=== PATIENT | male | born 2000 | race Caucasian/White ===

== ENCOUNTER 2019-01-26 16:59 | Emergency (ER) | payer OTHER ==
[~2019-01-26] VITALS: Ht 180.3 cm; Wt 68.0 kg
--- NOTE | 2019-01-26 19:00 | NUR ---
ERMD AT BEDSIDE
--- NOTE | 2019-01-26 19:11 | NUR ---
Patient discharged to home in stable conditon. Written and verbal after care instructions given. Patient verbalizes understanding of instructions. Patient ambulated with stable condition.
[2019-01-26 19:13] VITALS: BP 121/83
== END 2019-01-26 19:14 | disposition home or self-care (01) ==
LOC: ER 17:03
DX: B34.9 Viral infection, unspecified (principal)
CPT/HCPCS: A4663

== ENCOUNTER 2019-02-11 21:27 | Emergency (ER) | payer OTHER ==
[~2019-02-11] VITALS: Ht 180.3 cm; Wt 81.6 kg
[2019-02-11] MEDS ORDERED: predniSONE 20 MG TABLET PO ONE (22:15)
[2019-02-11] MEDS: LORATADINE 10 MG TABLET PO SCH ×2 (22:19→22:20)
[2019-02-11] MEDS ORDERED: LORATADINE 10 MG TABLET ONE (22:20)
[2019-02-11] MEDS ORDERED: predniSONE 20 MG TABLET ONE (22:21)
--- NOTE | 2019-02-11 22:21 | NUR ---
PATIENT RECEIVED CXR AWAITING RESULTS.
[2019-02-11 22:42] VITALS: BP 110/68
== END 2019-02-11 22:43 | disposition home or self-care (01) ==
LOC: ER 21:32
DX: R05 Cough (principal); J30.1 Allergic rhinitis due to pollen
CPT/HCPCS: 71045; 99283; J7512; A4663

== ENCOUNTER 2019-02-27 20:13 | Emergency (ER) | payer OTHER ==
[~2019-02-27] VITALS: Ht 180.3 cm; Wt 81.6 kg
--- NOTE | 2019-02-27 20:24 | NUR ---
patient came from home with chied complaint of cough that has been continuous for 3 month.
[2019-02-27] MEDS ORDERED: ALBUTEROL SULFATE 2.5 MG/3 ML NEBU NEB ONE (20:45)
[2019-02-27] MEDS ORDERED: IPRATROPIUM BROMIDE 0.5 MG/2.5 ML NEBU NEB ONE (20:45)
[2019-02-27] MEDS ORDERED: predniSONE 20 MG TABLET ONE (20:52)
[2019-02-27] MEDS ORDERED: IPRATROPIUM BROMIDE 0.5 MG/2.5 ML NEBU ONE (20:54)
[2019-02-27] MEDS ORDERED: ALBUTEROL SULFATE 2.5 MG/3 ML NEBU ONE (20:54)
--- NOTE | 2019-02-27 20:56 | NUR ---
Patient taken down to radiology for rdiagnostic studies with Rod oh via wheel chair,
[2019-02-27] MEDS ORDERED: predniSONE 20 MG TABLET PO ONE (21:00)
--- NOTE | 2019-02-27 22:34 | NUR ---
Patient discharged to home in stable conditon. Written and verbal after care instructions given. Patient verbalizes understanding of instructions. patient alert and oriented x4. patient self ambulatory with steady gait. Exit care package and personal belonings taken home with the patient at discharge. Patient denies any pain/discomfort at this time. Education provided prior to discharge.
[2019-02-27 22:36] VITALS: BP 129/75
== END 2019-02-27 22:40 | disposition home or self-care (01) ==
LOC: ER 20:16
DX: R05 Cough (principal)
CPT/HCPCS: 71046; 94640; 99283; J7512; A4663; J3590

== ENCOUNTER 2019-03-18 05:55 | Emergency (ER) | payer OTHER ==
[~2019-03-18] VITALS: Ht 180.3 cm; Wt 81.6 kg
--- NOTE | 2019-03-18 06:01 | NUR ---
Patient came from home, chief complaint of cough that hasn't gone away the past few weeks. Patients dienies any SOB or respiratory distress. patient denies having any other symptoms: fever, body aches, chills and runny nose. Patient denies any pain at this time
--- NOTE | 2019-03-18 06:02 | NUR ---
Dr. Morrison at bedside to see evaluate the patient.
--- NOTE | 2019-03-18 06:32 | NUR ---
Patient discharged to home in stable conditon. Written and verbal after care instructions given. Patient verbalizes understanding of instructions. patient alert and oriente x4. Patient self ambulatory with steady gait. Exit care and personal belongings taken with patient at discharge.
[2019-03-18 06:33] VITALS: BP 138/86
== END 2019-03-18 06:33 | disposition home or self-care (01) ==
LOC: ER 05:59
DX: J40 Bronchitis, not specified as acute or chronic (principal); R10.13 Epigastric pain
CPT/HCPCS: 71045; A4663

== ENCOUNTER 2019-07-09 06:35 | Emergency (ER) | payer OTHER ==
[~2019-07-09] VITALS: Ht 180.3 cm; Wt 72.6 kg
--- NOTE | 2019-07-09 06:45 | NUR ---
PATIENT WAS MSE BY DR COLEMAN IN ROOM 03A. PATIENT A & O X3.
--- NOTE | 2019-07-09 06:54 | NUR ---
Patient discharged to home in stable condition. Written and verbal after care instructions given. Patient verbalizes understanding of instructions.
[2019-07-09 06:57] VITALS: BP 132/76
== END 2019-07-09 06:58 | disposition home or self-care (01) ==
LOC: ER 06:40
DX: J40 Bronchitis, not specified as acute or chronic (principal); R07.89 Other chest pain
CPT/HCPCS: A4663

== ENCOUNTER 2020-06-06 19:47 | Emergency (ER) | payer OTHER ==
[~2020-06-06] VITALS: Ht 182.9 cm; Wt 81.6 kg
--- NOTE | 2020-06-06 20:10 | NUR ---
MD TENA in room to see patient.
[2020-06-06] MEDS ORDERED: HYDROCODONE/APAP 10-325 MG TABLET PO ONE (20:15)
[2020-06-06] MEDS ORDERED: COLCHICINE 0.6 MG TABLET PO ONE (20:15)
--- NOTE | 2020-06-06 20:35 | NUR ---
Patient is sitting upright in the room. States that his toe hurts. Addendum: 06/06/20 at 2043 by IRA Right big toe.
[2020-06-06] MEDS ORDERED: COLCHICINE 0.6 MG TABLET ONE (20:37)
[2020-06-06] MEDS ORDERED: HYDROCODONE/APAP 10-325 MG TABLET ONE (20:38)
[2020-06-06 20:40] VITALS: BP 120/84
--- NOTE | 2020-06-06 20:40 | NUR ---
Patient discharged to home in stable condition. Written and verbal after care instructions given. Patient verbalizes understanding of instructions. Stressed follow up or return to ER for worsening s/s. Patient is ambulatory, but advised to rest his right foot. Patient left with all belongings. Instructed to not drive.
--- NOTE | 2020-06-06 20:40 | NUR ---
Patient left prior to 21:35 reassessment of pain from [facility] administration.
== END 2020-06-06 20:40 | disposition home or self-care (01) ==
LOC: ER 19:49
DX: M10.9 Gout, unspecified (principal)
CPT/HCPCS: A4663

== ENCOUNTER 2020-06-24 20:49 | Emergency (ER) | payer OTHER ==
[~2020-06-24] VITALS: Ht 180.3 cm; Wt 81.6 kg
--- NOTE | 2020-06-24 21:03 | NUR ---
Patient arrived at the ER with c/o right big toe pain. Was seen here on 06/06/20 for same complaint. Came in for worsening pain.
--- NOTE | 2020-06-24 21:14 | NUR ---
Dr. Boss at bedside for MSE.
[2020-06-24] MEDS ORDERED: INDOMETHACIN 25 MG CAPSULE PO ONE (21:30)
[2020-06-24] MEDS ORDERED: INDO50CA92 PO (21:39)
[2020-06-24] MEDS ORDERED: INDOMETHACIN 25 MG CAPSULE ONE (21:44)
--- NOTE | 2020-06-24 22:03 | NUR ---
Patient discharged to home in stable condition. Written and verbal after care instructions given. Patient verbalizes understanding of instructions. Stressed follow up or return to ER for worsening s/s. Pt ambulated out of the ER with steady gait. All belongings with pt.
[2020-06-24 22:04] VITALS: BP 132/77
== END 2020-06-24 22:04 | disposition home or self-care (01) ==
LOC: ER 20:51
DX: M10.9 Gout, unspecified (principal)
CPT/HCPCS: 73630; A4663